=== PATIENT | male | born 1975 | race Caucasian/White ===

== ENCOUNTER 2023-03-06 09:15 | Outpatient (RCR) | payer OTHER, SELFPAY | END 2023-05-13 12:11 | disposition home or self-care (01) | LOC: ANHDMC 09:15 | PROVIDERS: PCP Nurse Practitioner; Visit Provider Nurse Practitioner | DX: E11.9 Type 2 diabetes mellitus without complications (principal); Z71.89 Other specified counseling | CPT/HCPCS: G0108 ==

== ENCOUNTER 2024-04-29 06:34 | Day surgery (SDC) | payer OTHER, SELFPAY ==
[2024-03-04 11:20] VITALS: BMI 31.3
[2024-04-12 14:10] VITALS: BMI 30.4
[2024-04-29 07:10] VITALS: BP 136/96; PULSE 100; RESP 18; TEMP 37.3; O2SAT 100
[2024-04-29] MEDS: LACTATED RINGERS 1,000 ML 150 ML IV CONT (07:13)
[2024-04-29 07:21] LABS: Glucose Point of Care 144 mg/dl (65-105)
--- NOTE | 2024-04-29 07:23 | P.HP_ITS ---
History of Present Illness History of Present Illness Consent: Risks, benefits, and alternatives have been discussed and questions answered. Patient agrees to proceed with procedure. Chief complaint: Screening Neoplasm of Colon Narrative: Jaswant García is a 48 year old male presents for screening colonoscopy. Patient's weight appetite and bowel movements are normal. Patient denies abdominal pain. He has had no bleeding. Family history is noncontributory Review of Systems Review of Systems: All systems reviewed & are unremarkable except as noted in HPI and below PMFSH Past Medical History Medical History Body mass index [BMI] 29.0-29.9, adult (08/04/17) Left lateral epicondylitis Numbness in both hands Family History Family History Grandparent Diabetes mellitus Grandparent Diabetes mellitus Social History Social History Smoking packs per day: 0.5 Smoking cigarettes per day: 10.0 Years smoked: 20 Smoking pack-years: 10.00 Smoking status: Current some day smoker Tobacco type: cigarettes Alcohol intake: never Substance use: never Substance use type: does not use Lack of Transportation: No Lack of Food: Never True Current Housing: I Have Housing Concerned About Future Housing: No Difficulty Paying Gas/Electric Bills: No Difficulty Paying for Meds: No Currently Unemployed: No Education: Trade/Vocational Certificate Difficulty w/ Childcare or Family Care: No Living arrangements: with family Occupation/Education: occupation 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 Gender identity (if verbalized by the patient): Male Sexual Orientation (if Verbalized by the Patient): Straight or Heterosexual Spiritual care concerns: No Meds Home Medications and Allergies Home Medications ?Medication ?Instructions ?Recorded ?Confirmed ?Type blood sugar diagnostic (OneTouch #100 ea 02/24/23 02/27/24 Rx Verio test strips) lancets 30 gauge #200 ea 02/24/23 02/27/24 Rx flash glucose scanning reader #1 ea 03/13/23 02/27/24 Rx (FreeStyle Meño 2 [place]) flash glucose sensor (FreeStyle #2 ea 03/13/23 02/27/24 Rx Meño 2 Sensor kit) metformin 500 mg tablet 500 mg PO .COMPLEX #270 tabs 01/27/24 04/29/24 Rx pioglitazone 30 mg tablet (Actos) 30 mg PO DAILY #90 tabs 01/27/24 04/29/24 Rx rosuvastatin 20 mg tablet 20 mg PO DAILY #90 tabs 01/27/24 04/29/24 Rx Allergies Allergy/AdvReac Type Severity Reaction Status Date / Time No Known Allergies Allergy Verified 04/29/24 07:08 Vital Signs Vital Signs - 24 hr 04/29/24 07:10 Temperature 99.2 F Pulse Rate 100 Respiratory Rate 18 Blood Pressure 136/96 H Pulse Oximetry 100 Oxygen Delivery Room Air Exam Narrative: Physical exam reveals patient to be alert. Vital signs stable. HEENT exam is unremarkable. Patient is anicteric. Is are clear to auscultation and to percussion heart is without murmur or extra sounds. Abdomen bowel sounds are present soft nontender with no organomegaly. Digital external rectal exam normal. Assessment and Plan Assessment and plan (1) Screening for colon cancer: Code(s): Z12.11 - Encounter for screening for malignant neoplasm of colon Status: Acute Assessment and Plan: Patient presents for neoplasia screening. He appears to Be at average risk for colon polyps. Further recommendations may be given after endoscopy.
--- NOTE | 2024-04-29 07:57 | P.PNAN_ITS ---
Anes - Initial Pre Proc Eval Procedure: Operation Date: 04/29/24 08:30 Proposed Procedures p Screening Colonoscopy - Johnson Ross MD Date/Time: 04/29/24 07:57 Surgeon: Johnson Ross MD Pre Op Diagnosis: Screening Neoplasm of Colon Patient Data Age: 48 Gender: M Height: 1.7 m Weight: 87.35 kg Last Vital Signs Temp 37.3 C 04/29/24 07:10 Pulse 100 04/29/24 07:10 Resp 18 04/29/24 07:10 BP 136/96 H 04/29/24 07:10 Pulse Ox 100 04/29/24 07:10 O2 Del Method Room Air 04/29/24 07:10 Allergies Allergy/AdvReac Type Severity Reaction Status Date / Time No Known Allergies Allergy Verified 04/29/24 07:08 Home Medications ?Medication ?Instructions ?Recorded ?Confirmed ?Type blood sugar diagnostic (OneTouch #100 ea 02/24/23 02/27/24 Rx Verio test strips) lancets 30 gauge #200 ea 02/24/23 02/27/24 Rx flash glucose scanning reader #1 ea 03/13/23 02/27/24 Rx (FreeStyle Meño 2 [place]) flash glucose sensor (FreeStyle #2 ea 03/13/23 02/27/24 Rx Meño 2 Sensor kit) metformin 500 mg tablet 500 mg PO .COMPLEX #270 tabs 01/27/24 04/29/24 Rx pioglitazone 30 mg tablet (Actos) 30 mg PO DAILY #90 tabs 01/27/24 04/29/24 Rx rosuvastatin 20 mg tablet 20 mg PO DAILY #90 tabs 01/27/24 04/29/24 Rx Laboratory Tests 04/29/24 07:19 POC Capillary Glucose 144 H mg/dl (65-105) Patient hx anesthesia problems: none Family hx anesthesia problems: none Results Review: All pre-operative results and documents have been reviewed as part of the pre- operative evaluation. [facility] Past Medical History Medical History (Updated 04/29/24 @ 07:58 by Jaswant Corbett MD) Hyperlipidemia Type 2 diabetes mellitus without complication, with no history of insulin use Body mass index [BMI] 29.0-29.9, adult (08/04/17) Numbness in both hands Left lateral epicondylitis Family History Family History Grandparent Diabetes mellitus Grandparent Diabetes mellitus Social History Social History Smoking packs per day: 0.5 Smoking cigarettes per day: 10.0 Years smoked: 20 Smoking pack-years: 10.00 Smoking status: Current some day smoker Tobacco type: cigarettes Alcohol intake: never Substance use: never Substance use type: does not use Lack of Transportation: No Lack of Food: Never True Current Housing: I Have Housing Concerned About Future Housing: No Difficulty Paying Gas/Electric Bills: No Difficulty Paying for Meds: No Currently Unemployed: No Education: Trade/Vocational Certificate Difficulty w/ Childcare or Family Care: No Living arrangements: with family Occupation/Education: occupation 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 Gender identity (if verbalized by the patient): Male Sexual Orientation (if Verbalized by the Patient): Straight or Heterosexual Spiritual care concerns: No Anes - Eval Final PreProcedure Day of Procedure 04/29/24 07:57 Patient weight: obese Heart: regular rate and rhythm Lungs: clear to auscultation Airway: Mallampati scale class II Neurological: alert and oriented ASA classification: III Emergent: no Anesthetic plan: proceed Anesthesia type and monitoring: general GIVS and standard monitoring Results Review: All pre-operative results and documents have been reviewed as part of the pre- operative evaluation. Informed Consent: The patient's anesthetic plan and its attendant risks and benefits were discussed with the patient/family/POA. Questions were solicited and answers provided to the satisfaction of the patient/family/POA.
[2024-04-29 09:00] VITALS: BP 102/70; PULSE 75; RESP 18; O2SAT 97
--- NOTE | 2024-04-29 09:09 | WPDANESPN ---
Anes - Prog Note Post-Op Date/Time: 04/29/24 09:09 Cardiovascular status: normal Respiratory status: normal Airway patency: baseline Mental status: baseline Post-Op hydration status: normal Vital Signs: Last Vital Signs Temp 37.3 C 04/29/24 07:10 Pulse 75 04/29/24 09:00 Resp 18 04/29/24 09:00 BP 102/70 04/29/24 09:00 Pulse Ox 97 04/29/24 09:00 O2 Del Method Room Air 04/29/24 09:00 Pain Score (VAS): 0/10 I/O: Intake & Output 04/28/24 04/29/24 04/29/24 23:59 07:59 15:59 Intake Total 300 Balance 300 04/29/24 07:19 POC Capillary Glucose 144 H Patient Feedback: Patient satisfied with anesthetic care.
[2024-04-29 09:10] VITALS: BP 98/69; PULSE 72; RESP 16; O2SAT 98
[2024-04-29 09:20] VITALS: BP 112/73; PULSE 78; RESP 15; O2SAT 97
== END 2024-04-29 09:25 | disposition home or self-care (01) ==
PROVIDERS: PCP Nurse Practitioner; Visit Provider Internal Medicine Gastroenterology
PROC: 0DJD8ZZ Inspection of Lower Intestinal Tract, Via Natural or Artificial Opening Endoscopic (ICD-10-PCS; CPT 45378; principal; 2024-04-29 08:30)
DX: Z12.11 Encounter for screening for malignant neoplasm of colon (principal); K64.8 Other hemorrhoids
CPT/HCPCS: 45378

== ENCOUNTER 2025-03-12 00:56 | Emergency (ER) | payer OTHER, SELFPAY ==
--- NOTE | 2025-03-12 00:57 | PC.NURSE ---
As Rn is getting pt checked in, pt asks hide spreader how long the wait time is going to be. This RN states we cannot give out wait times its all based on pt acuity and how fast they move pts in the back. Pt states I can't wait this long, I am going to have to go somewhere else. Pt left without being seen.
== END 2025-03-12 01:35 | disposition left against medical advice (07) ==
LOC: ANHED 01:23
PROVIDERS: PCP Nurse Practitioner
DX: Z53.21 Procedure and treatment not carried out due to patient leaving prior to being seen by health care provider (principal)
CPT/HCPCS: 99199